=== PATIENT | female | born 1955 | race Caucasian/White ===

== ENCOUNTER 2018-09-06 13:09 | Day surgery (SDC) | payer OTHER, SELFPAY ==
[2018-09-06] MEDS: SODIUM CHLORIDE 0.9% 1,000 ML 200 ML IV (14:00)
[2018-09-06 14:03] VITALS: BP 127/80; PULSE 67; RESP 15; TEMP 36.5; O2SAT 95; BMI 27.7
--- NOTE | 2018-09-06 15:20 | PM.HP.1 ---
History of Present Illness Date Patient Seen: 09/06/18 Time Patient Seen: 15:21 Chief complaint: [id number] Narrative: Patient is asymptomatic here for screening colonoscopy Patient History Medical History Constipation (Acute) Fibromyalgia (Acute) GERD (gastroesophageal reflux disease) (Acute) Hypertension (Acute) Interstitial cystitis (Acute) PVC (premature ventricular contraction) (Acute) Urinary frequency (Acute) Social History household members: spouse Family & Social History Social History: household members spouse Meds Home Medications Medication Instructions Recorded Confirmed Type atenolol 50 mg PO DAILY 09/06/18 09/06/18 History pantoprazole 20 mg PO DAILY 09/06/18 09/06/18 History pentosan polysulfate sodium 100 mg PO DAILY 09/06/18 09/06/18 History [Elmiron] tolterodine [Detrol LA] 4 mg PO DAILY 09/06/18 09/06/18 History Allergies Allergy/AdvReac Type Severity Reaction Status Date / Time meloxicam Allergy Intermediate Rash, Verified 09/06/18 13:54 itching sulfamethoxazole Allergy Intermediate Rash, Verified 09/06/18 13:54 [SULFAMETHOXAZOLE] headaches trimethoprim [TRIMETHOPRIM] Allergy Intermediate Nausea, Verified 09/06/18 13:54 headache ofloxacin [OFLOXACIN] Allergy Mild Rash, Verified 09/06/18 13:54 headaches morphine [MORPHINE] AdvReac Mild Nausea Verified 09/06/18 13:54 Review of Systems Review of Systems All systems reviewed & are unremarkable except as noted in HPI and below Exam Vital Signs (past 8 hours): - 09/06/18 14:03 Temperature 97.7 F Pulse Rate 67 Respiratory Rate 15 Blood Pressure 127/80 Pulse Oximetry 95 Oxygen Delivery Method Room Air Narrative Exam Narrative: Patient is alert and oriented Lungs are clear with no rales or wheezes Heart regular rhythm no murmur Abdominal exam is soft nontender no masses Rectal be done at colonoscopy Assessment & Plan Assessment & Plan narrative: Patient is here for screening colonoscopy understands the procedure and has no questions
[2018-09-06] MEDS: fentaNYL 250 MCG/5 ML INJ IV (15:42)
[2018-09-06] MEDS: MIDAZOLAM 5 MG/5 ML VIAL IV (15:42)
[2018-09-06 15:49] VITALS: BP 137/77; PULSE 73; RESP 20; O2SAT 95
--- NOTE | 2018-09-06 15:51 | PM.OP.ENDO ---
Operative Date/Time/Diagnoses Date of procedure: 09/06/18 Time of procedure: 15:51 Pre-op diagnosis: Screening colonoscopy Post-op diagnosis: other (Severe fixation and rigidity of sigmoid colon making colonoscopy very painful and dangerous. Procedure was aborted. Any attempt at repeat colonoscopy requires presence of an anesthesiologist.) Procedure & Clinicians Study performed: Partial colonoscopy into the descending colon Same procedure as scheduled: No Indications: Screening Surgeon: Brooks Garcia Procedure Notes SCOAP/Timeout: Was done Procedure in detail: After proper identification during surgical pause the flexible fiberoptic colonoscope was inserted transanally up to 50 cm in the descending colon this patient described having a very difficult airway problem before her procedure. I gave her a total of 4 mg of Versed and 200 mg of fentanyl and navigated a very difficult sigmoid colon however they sigmoid is very rigid not flexible and will not allow safe passage of the scope without general anesthesia. Even then it may not be possible. Therefore I aborted the procedure after reaching 50 cm. I did note significant sigmoid diverticulosis no tumors or polyps were encountered. Further evaluation would be requiring either general anesthesia with propofol or a barium enema could be done to evaluate the remaining colon. Scope withdrawal time: 7 Sedation minutes: 31 Findings: diverticulosis Specimen(s): none sent Complications: none Recommendations: Other recommendation (barium enema)
[2018-09-06 15:54] VITALS: BP 123/76; PULSE 74; RESP 11; O2SAT 94
[2018-09-06 16:07] VITALS: BP 122/73; PULSE 68; RESP 16; TEMP 36.8; O2SAT 94
--- NOTE | 2018-09-06 17:04 | SUR.PHASEII ---
1607 Instructions/report reviewed w/patient and spouse. She is frustrated that they were able to complete the procedure and states that she was very uncomfortable throughout the procedure. Explained to patient the amount of medication that she had and the limited distance that was examined. Understands that she will follow-up with her primary doctor. Patient is currently comfortable.
== END 2018-09-06 16:28 | disposition home or self-care (01) ==
PROVIDERS: PCP Nurse Practitioner Family; Visit Provider Surgery
PROC: 0DJD8ZZ Inspection of Lower Intestinal Tract, Via Natural or Artificial Opening Endoscopic (ICD-10-PCS; CPT 45378; principal; 2018-09-06 15:15)
DX: Z12.11 Encounter for screening for malignant neoplasm of colon (principal); Z53.09 Procedure and treatment not carried out because of other contraindication; K57.30 Diverticulosis of large intestine without perforation or abscess without bleeding; I10 Essential (primary) hypertension; M79.7 Fibromyalgia; K21.9 Gastro-esophageal reflux disease without esophagitis; K59.00 Constipation, unspecified; I49.3 Ventricular premature depolarization
CPT/HCPCS: 45378; 99152; 99153; J2250; J3010

== ENCOUNTER → 2019-06-10 13:49 | Outpatient (CLI) | payer MEDICARE, OTHER, SELFPAY ==
--- NOTE | 2019-06-10 | DI.MG.S_ITS ---
BILATERAL DIGITAL SCREENING MAMMOGRAM 3D/2D WITH CAD: 06/10/2019 CLINICAL: Routine screening. Family history of breast cancer. Comparison is made to exams dated: 03/02/2018 mammogram - [facility], 03/03/2017 mammogram, and 12/11/2015 mammogram - [facility]. There are scattered fibroglandular elements in both breasts. Current study was also evaluated with a Computer Aided Detection (CAD) system. There are benign calcifications in both breasts. There also are benign vascular calcifications in both breasts. No significant masses, calcifications, or other findings are seen in either breast. There has been no significant interval change. IMPRESSION: There is no mammographic evidence of malignancy. A 1 year screening mammogram is recommended. This exam was interpreted at Station ID: [id number]. NOTE: For mammograms, a report in lay terms will be sent to the patient. Approximately 15% of breast malignancies will not be visualized mammographically. In the management of a palpable breast mass, a negative mammogram must not discourage biopsy of a clinically suspicious lesion. Electronically Signed By: Alexis [email or web address]/[email or web address]:06/10/2019 14:38:05 copy to: LIA LARSON letter sent: Normal Exam ACR BI-RADS Category 2: Benign Finding(s) [id number]
== END ==
PROVIDERS: PCP Nurse Practitioner Family; Referring Provider Family Medicine; Visit Provider Family Medicine
DX: Z12.31 Encounter for screening mammogram for malignant neoplasm of breast (principal); Z80.3 Family history of malignant neoplasm of breast
CPT/HCPCS: 77063; 77067